=== PATIENT | female | born 1945 | race Caucasian/White ===

== ENCOUNTER 2024-03-10 10:00 | Outpatient (CLI) | payer MEDICARE, BC, SELFPAY ==
--- NOTE | 2024-03-10 11:41 | W.ANESCHARGE ---
Anesthesia Charges Start Date/Time Anesthesia Start Date: 03/10/24 Anesthesia Start Time: 11:18 Stop Date/Time Anesthesia Stop Date: 03/10/24 Anesthesia Stop Time: 11:47 Summary Extremes of Age - Over 70 or under 1: MDA
--- NOTE | 2024-03-10 11:55 | W.ANESCHARGE ---
Anesthesia Charges Start Date/Time Anesthesia Start Date: 03/10/24 Anesthesia Start Time: 11:18 Stop Date/Time Anesthesia Stop Date: 03/10/24 Anesthesia Stop Time: 11:47
== END 2024-03-10 10:01 | disposition home or self-care (01) ==
LOC: OP CLINIC 10:03
PROVIDERS: PCP Family Medicine; Visit Provider Internal Medicine Gastroenterology
DX: Z12.11 Encounter for screening for malignant neoplasm of colon (principal); D12.4 Benign neoplasm of descending colon; K57.30 Diverticulosis of large intestine without perforation or abscess without bleeding
CPT/HCPCS: 00811; 45380; 88305; 99100; J2405; J2704